=== PATIENT | female | born 1975 ===

== ENCOUNTER 2024-11-04 10:18 | Day surgery (SDC) | payer OTHER ==
[2024-10-28 08:58] VITALS: BP 119/80
[2024-10-28 08:58] LABS: HEMATOCRIT 40.9 % (36.0-45.00); HEMOGLOBIN 14.1 g/dL (12.0-15.00); MEAN CELL VOLUME 82.2 fL (80.00-100.00); MEAN CORPUSCULAR HEMOGLOBIN 28.3 pg (27.00-32.0); MEAN CORPUSCULAR HGB CONC 34.5 g/dl (32.0-36.0); PLATELET COUNT 311 K/uL (150-450); RED BLOOD COUNT 4.98 M/uL (4.00-6.00); RED CELL DISTRIBUTION WIDTH 13.1 % (11.5-14.5)
[2024-10-28 09:16] LABS: PARTIAL THROMBOPLASTIN TIME 26.5 SECONDS (22.0-34.0); PROTHROMBIN TIME 10.9 SECONDS (9.0-11.5)
[2024-10-28 09:44] LABS: ALBUMIN 3.5 gm/dL (3.4-5.0); BILIRUBIN TOTAL 0.42 mg/dL (0.3-1.2); CALCIUM 8.5 mg/dL (8.5-10.1); CREATININE SERUM 0.63 mg/dL (0.55-1.02); GFR 100.86; GLOBULINA 3.3 G/DL (2.4-3.5); POTASSIUM 4.4 mEq/L (3.5-5.1); TOTAL PROTEIN 6.8 gm/dL (6.4-8.2)
[2024-10-28 10:25] LABS: URINE APPEARANCE Clear; URINE BILIRRUBIN Negative (NEGATIVE); URINE BLOOD Small; URINE COLOR Yellow; URINE GLUCOSE Negative (NEGATIVE); URINE KETONE Negative (NEGATIVE); URINE LEUKOCYTE Negative; URINE NITRATE Negative; URINE PROTEIN Negative (NEGATIVE); URINE UROBILINOGEN 0.2 E.U./dl
[2024-10-28 10:29] LABS: URINE EPITHELIAL CELLS 7.5 uL (0.0-38.8); URINE RBC 24.4 uL (0.0-20.8); URINE WBC 3.4 uL (0.0-23.2)
[~2024-11-04] VITALS: Ht 157.5 cm; Wt 61.2 kg
[~2024-11-04 10:18] MED LIST: PROTONIX20 MG PO; VITAL-D RX TAB1 EACH PO
[2024-11-04] MEDS ORDERED: MORPHINE SULFATE 4 MG/ML VIAL IV PRN (18:00)
[2024-11-04] MEDS ORDERED: KETOROLAC TROMETHAMINE 30 MG VIAL IV PRN (18:00)
[2024-11-04] MEDS ORDERED: PROMETHAZINE HCL 25 MG/ML AMPUL IV PRN (18:00)
[2024-11-04] MEDS ORDERED: POVIDONE-IODINE 118 ML BOTT TOP ONE (18:30)
== END 2024-11-04 23:00 | disposition home or self-care (01) ==
LOC: CIR.AMB 10:18
PROVIDERS: ATTEND Student in an Organized Health Care Education/Training Program
DX: N84.0 Polyp of corpus uteri (principal); N93.8 Other specified abnormal uterine and vaginal bleeding; Z88.6 Allergy status to analgesic agent

== ENCOUNTER 2025-04-08 11:15 | Inpatient (IN) | payer OTHER ==
[~2025-04-08] VITALS: Ht 157.5 cm; Wt 62.6 kg
[2025-04-08] MEDS ORDERED: NORETHIND-ETH1 EAC1 PO (12:56)
[2025-04-08] MEDS ORDERED: PEPCID AC20 MG PO (12:57)
[2025-04-08 13:01] VITALS: BP 137/86
[2025-04-15] MEDS ORDERED: POVIDONE-IODINE 118 ML BOTT TOP ONE (09:00)
[2025-04-15] MEDS ORDERED: CEFAZOLIN SODIUM 1,000 MG VIAL IV ONE (09:00)
[2025-04-15] MEDS ORDERED: ONDANSETRON HCL 2 MG/ML VIAL IV PRN (12:00)
[2025-04-15] MEDS ORDERED: RINGERS SOLUTION,LACTATED 1,000 ML IV SCH (12:00)
[2025-04-15] MEDS ORDERED: MORPHINE SULFATE 4 MG/ML CARTRIDGE IV PRN (12:15)
[2025-04-15] MEDS ORDERED: MORPHINE SULFATE 4 MG/ML VIAL IV ONE ×2 (12:45→14:45)
[2025-04-15 20:00] VITALS: BP 119/73
[2025-04-16] VITALS: BP 100/63
[2025-04-16 06:29] LABS: BASO % 0.4 % (0.1-1.2); EOS # 0.08 (0.04-0.54); EOS % 1.1 % (0.7-7.0); LYMPH # 1.12 (1.18-3.74); LYMPH % 15.5 % (19.3-53.1); MEAN PLATELET VOLUME 9.20 fl (9.4-12.4); MONO # 0.62 (0.24-0.82); MONO % 8.6 % (4.7-12.5); NEUT # 5.33 (1.56-6.13); NEUT % 74.0 % (34.0-71.1); RED CELL DISTRIBUTION WIDTH 13.0 % (11.6-14.4)
[2025-04-16 09:39] VITALS: BP 127/73
[2025-04-16] MEDS ORDERED: COLACE100 MG PO (12:37)
[2025-04-16] MEDS ORDERED: IBU800 MG PO (12:37)
== END 2025-04-16 14:06 | disposition home or self-care (01) | DRG 743 ==
LOC: O/R 04-15 05:30 → OB/GYN 04-15 05:30 → SURH 04-15 07:00 → OB/GYN 04-15 13:37
PROVIDERS: ADMIT Obstetrics & Gynecology; ATTEND Obstetrics & Gynecology
PROC: 0UT54ZZ Resection of Right Fallopian Tube, Percutaneous Endoscopic Approach (ICD-10-PCS; 2025-04-15)
PROC: 0UT94ZZ Resection of Uterus, Percutaneous Endoscopic Approach (ICD-10-PCS; principal; 2025-04-15 07:00)
DX: N72 Inflammatory disease of cervix uteri (principal); N84.0 Polyp of corpus uteri